=== PATIENT | female | born 1970 | race Caucasian/White ===

== ENCOUNTER → 2016-12-15 | Outpatient (CLI) | payer OTHER ==
[~2016-12-15] MED LIST: ACETAMINOPHEN &1 TA1 PO; BACTRIM DS 8001 TA1 PO; CIPRO 500MG TA500 MG PO; FLEXERIL10 MG PO; FLOMAX 0.4MG C0.4 MG PO; FLOMAX0.4 MG PO; LORTAB 5/500 501 TAB PO; MULTI VITAMINS1 TA1 PO; NAPROSYN 500MG500 MG PO; NOMEDS *; PHENERGAN25 M3 PO; PYRIDIUM 200MG200 MG PO; VICODIN 5/500 T1 TAB PO
--- NOTE | 2016-12-15 12:58 | RADIOLOGY REPORT PS360 ---
KNEE-3 VIEWS-RT HISTORY: BILAT KNEE PAIN ORDERING PHYSICIAN: Alhaji Freeman MD PATIENT AGE: 46 years COMPARISON: None FINDINGS: Minimal osteoarthritic changes are present with minimal spurring at the medial compartment and superior patella. No fracture or dislocation. No lytic or blastic change. Normal mineralization. No other significant findings IMPRESSION: Minimal osteoarthritic change otherwise negative right knee
--- NOTE | 2016-12-15 12:59 | RADIOLOGY REPORT PS360 ---
KNEE-3 VIEWS-LT HISTORY: BILAT KNEE PAIN ORDERING PHYSICIAN: Alhaji Freeman MD PATIENT AGE: 46 years COMPARISON: None FINDINGS: There are mild osteoarthritic changes involving all 3 compartments greater at the medial compartment with osteophyte formation and slight decrease in joint space. Small loose body is suspected measuring 6 mm along the medial aspect of the lateral compartment anteriorly. No fracture or dislocation. No lytic or blastic change. IMPRESSION: Mild osteoarthritic change involving all 3 compartments with suspected loose body of the lateral compartment
== END ==
LOC: RAD 12:24
DX: M25.562 Pain in left knee (principal); M25.561 Pain in right knee